=== PATIENT | female | born 1955 | race Caucasian/White ===

== ENCOUNTER 2021-08-15 12:19 | Inpatient (IN) | payer MEDICARE, OTHER ==
[~2021-08-15] VITALS: Ht 157.5 cm; Wt 65.2 kg
[2021-08-15] VITALS (13 sets, daily range): BP systolic 122–163; BP diastolic 52–93
[2021-08-15] MEDS ORDERED: ACETAMINOPHEN 325 MG TABLET PO PRN ×2 (12:30→21:30)
[2021-08-15] MEDS ORDERED: ONDANSETRON HCL 4 MG/2 ML VIAL IVP PRN ×2 (12:30→21:30)
[2021-08-15] MEDS ORDERED: FentaNYL CITRATE PF 100 MCG/2 ML VIAL ONE (12:45)
[2021-08-15] MEDS ORDERED: MIDAZOLAM HCL 2 MG/2 ML VIAL ONE (12:46)
[2021-08-15] MEDS ORDERED: HEPARIN SODIUM 1000 UNITS/NS 1,000 ML ONE (12:46)
[2021-08-15] MEDS ORDERED: IOHEXOL 300 MG/ML 100 ML VIAL ONE (12:46)
[2021-08-15] MEDS ORDERED: IOHEXOL 300 MG/ML 150 ML VIAL ONE (12:46)
[2021-08-15] MEDS ORDERED: IOHEXOL 300 MG/ML 50 ML VIAL ONE (12:46)
[2021-08-15] MEDS ORDERED: LIDOCAINE/PF 1% 30 ML VIAL ONE (12:46)
[2021-08-15] MEDS ORDERED: SODIUM BICARBONATE 50 MEQ/50 ML VIAL ONE (12:46)
[2021-08-15] MEDS ORDERED: ASPIRIN 325 MG TABLET ONE (13:22)
[2021-08-15] MEDS ORDERED: TICAGRELOR 90 MG TABLET ONE (13:23)
[2021-08-15] MEDS ORDERED: ASPIRIN 81 MG CHEWABLE TABLET ONE (13:28)
[2021-08-15] MEDS ORDERED: HEPARIN SODIUM 1000 UNITS/NS 1,000 ML IARTER ONE (13:30)
[2021-08-15] MEDS ORDERED: LIDOCAINE 1% 30 ML/SOD BICARB 8.4% 4 ML SQ ONE (13:30)
[2021-08-15] MEDS ORDERED: MIDAZOLAM HCL 2 MG/2 ML VIAL IVP ONE ×2 (13:30)
[2021-08-15] MEDS ORDERED: FentaNYL CITRATE PF 100 MCG/2 ML VIAL IVP ONE ×2 (13:30)
[2021-08-15] MEDS ORDERED: IOHEXOL 300 MG/ML 150 ML VIAL IARTER ONE (13:30)
[2021-08-15] MEDS ORDERED: SODIUM CHLORIDE 0.9% 500 ML IV ONE (13:30)
[2021-08-15] MEDS ORDERED: HydrALAZINE HCL 20 MG/ML VIAL ONE (13:43)
[2021-08-15] MEDS ORDERED: METOPROLOL TARTRATE 5 MG/5 ML VIAL ONE (13:54)
[2021-08-15] MEDS ORDERED: HydrALAZINE HCL 20 MG/ML VIAL IVP ONE ×2 (14:00)
[2021-08-15] MEDS ORDERED: METOPROLOL TARTRATE 5 MG/5 ML VIAL IVP ONE (14:15)
[2021-08-15] MEDS ORDERED: DEXTROSE 50%-WATER 25 GM/50 ML SYRINGE IVP PRN (14:15)
[2021-08-15] MEDS ORDERED: NITROGLYCERIN 400 MCG/SUBLINGUAL SPRAY 4.9 GM BOTTLE SL ONE ×2 (14:21→15:00)
[2021-08-15] MEDS ORDERED: NITROGLYCERIN 400 MCG/SUBLINGUAL SPRAY 4.9 GM BOTTLE SL PRN (14:30)
[2021-08-15] MEDS ORDERED: HydrALAZINE HCL 20 MG/ML VIAL IVP PRN (14:30)
[2021-08-15] MEDS: MORPHINE SULFATE 2 MG/ML SYRINGE IVP PRN ×2 (16:02→21:48)
[2021-08-15] MEDS: INSULIN LISPRO 100 UNITS/ML SQ PRN (17:58)
[2021-08-15 19:45] LABS: GLUCOMETER DEV NAME(LOC) 5N.1C; GLUCOSE,POINT OF CARE 181 MG/DL (70-110)
[2021-08-15] MEDS ORDERED: MAGNESIUM HYDROXIDE SUSPENSION 30 ML UDCUP PO PRN (21:30)
[2021-08-15] MEDS ORDERED: HYDROCODONE/ACETAMINOPHEN 5-325 MG TABLET PO PRN (21:30)
[2021-08-15] MEDS ORDERED: IPRATROPIUM BROMIDE 0.5 MG/2.5 ML NEB SOLUTION NEB PRN (21:30)
[2021-08-15] MEDS ORDERED: ALBUTEROL SULFATE 2.5 MG/0.5 ML NEB SOLUTION NEB PRN (21:30)
[2021-08-15] MEDS ORDERED: BISACODYL 10 MG RECTAL RECTAL SUPPOSITORY PR PRN (21:30)
[2021-08-15] MEDS ORDERED: ZOLPIDEM TARTRATE 5 MG TABLET PO PRN (21:30)
[2021-08-15] MEDS ORDERED: MORPHINE SULFATE 2 MG/ML SYRINGE IVP PRN (21:30)
[2021-08-15] MEDS: TICAGRELOR 90 MG TABLET PO SCH (21:43)
[2021-08-15] MEDS: METOPROLOL TARTRATE 25 MG TABLET PO SCH (21:44)
[2021-08-16 00:28] VITALS: BP 131/53
[2021-08-16 03:19] VITALS: BP 140/58
[2021-08-16 07:47] VITALS: BP 140/57
[2021-08-16 08:07] VITALS: BP 142/64
[2021-08-16] MEDS: METOPROLOL TARTRATE 25 MG TABLET PO SCH (08:32)
[2021-08-16] MEDS: TICAGRELOR 90 MG TABLET PO SCH (08:34)
[2021-08-16] MEDS ORDERED: DOCUSATE SODIUM 100 MG CAPSULE PO SCH (09:00)
[2021-08-16] MEDS ORDERED: ASPIRIN 81 MG CHEWABLE TABLET PO SCH (09:00)
[2021-08-16] MEDS ORDERED: PANTOPRAZOLE SODIUM 40 MG/VIAL IVP SCH (09:00)
[2021-08-16 11:01] VITALS: BP 136/57
[2021-08-16] MEDS: INSULIN LISPRO 100 UNITS/ML SQ PRN (12:07)
[2021-08-16 15:57] VITALS: BP 146/61
[2021-08-16 21:31] LABS: GLUCOMETER DEV NAME(LOC) 5S.1; GLUCOSE,POINT OF CARE 148 MG/DL (70-110)
[2021-08-16 21:32] LABS: GLUCOMETER DEV NAME(LOC) 5S.1; GLUCOSE,POINT OF CARE 219 MG/DL (70-110)
== END 2021-08-16 17:45 | disposition home or self-care (01) | DRG 247 ==
LOC: EMS 12:28 → 5S 12:30
PROVIDERS: ADMIT Internal Medicine; ATTEND Internal Medicine
PROC: 027035Z Dilation of Coronary Artery, One Artery with Two Drug-eluting Intraluminal Devices, Percutaneous Approach (ICD-10-PCS; principal; 2021-08-15)
PROC: B41FYZZ Fluoroscopy of Right Lower Extremity Arteries using Other Contrast (ICD-10-PCS; 2021-08-15)
PROC: B211YZZ Fluoroscopy of Multiple Coronary Arteries using Other Contrast (ICD-10-PCS; 2021-08-15)
PROC: 4A023N7 Measurement of Cardiac Sampling and Pressure, Left Heart, Percutaneous Approach (ICD-10-PCS; 2021-08-15)
DX: I25.10 Atherosclerotic heart disease of native coronary artery without angina pectoris (principal)
CPT/HCPCS: 82962; 92920; 92928; 99285; C9113; G0378; J0360; J1644; J2250; J2270; J2405; J3010; J3490; Q9967